=== PATIENT | female | born 1985 | race Caucasian/White ===

== ENCOUNTER 2022-11-19 10:21 | Emergency (ER) | payer OTHER, SELFPAY ==
[2022-11-19 10:39] VITALS: BP 140/79; PULSE 87; RESP 17; TEMP 36.6; O2SAT 100
--- NOTE | 2022-11-19 10:39 | ECG_ITS ---
Measurements Intervals [place] Rate: 83 P: 73 AL: 138 QRS: 70 QRSD: 73 T: 61 QT: 338 QTc: 398 Interpretive Statements SINUS RHYTHM POOR R-WAVE PROGRESSION BORDERLINE ECG NO PREVIOUS ECG AVAILABLE FOR COMPARISON Electronically Signed On 11-19-2022 13:34:04 CDT by Jude Vivas M.D.
[2022-11-19 10:46] VITALS: PULSE 87
[2022-11-19 10:50] LABS: Basophils Absolute Auto 0.1 K/mm3 (0.0-0.1); Eosinophils Absolute Auto 0.2 K/mm3 (0-0.3); Eosinophils Percent Auto 2.4 % (0-4.4); Hematocrit 36.5 % (37.0-47.0); Hemoglobin 11.5 g/dL (12.0-15.0); Immature Granulocyte Absolute 0.01 K/mm3 (0.00-0.031); Immature Granulocyte Percent A 0.1 % (0-0.5); Lymphocytes Absolute Auto 2.11 K/mm3 (0.9-3.2); Lymphocytes Percent Auto 29.4 % (18.3-44.2); Mean Corpuscular HGB Conc 31.5 g/dl (32-36); Mean Corpuscular Hemoglobin 26.5 pg (26-34); Mean Corpuscular Volume 84.1 fl (80-100); Mean Platelet Volume 11.1 fl (7.4-10.4); Monocytes Absolute Auto 0.3 K/mm3 (0.1-0.6); Monocytes Percent Auto 4.6 % (2.6-8.5); Neutrophils Absolute Auto 4.5 K/mm3 (1.3-6.7); Neutrophils Percent Auto 62.5 % (45.5-73.1); Platelet Count Result 272 k/mm3 (150-375); Red Blood Count 4.34 M/mm3 (4.2-5.4); Red Cell Distribution Width 14.1 % (11.5-14.5); White Blood Count 7.2 K/mm3 (4.5-10.0)
[2022-11-19 10:51] VITALS: BP 121/70; PULSE 80
[2022-11-19 10:52] VITALS: BP 122/74; PULSE 81
[2022-11-19 10:54] VITALS: BP 126/95; PULSE 93
[2022-11-19 10:59] LABS: Alanine Aminotransferase 18 U/L (6-35); Alkaline Phosphatase 49 U/L (38-126); Anion Gap 10 mmol/L (8-16); Aspartate Amino Transferase 28 U/L (14-36); Bilirubin,Total 0.5 mg/dL (0.2-1.3); Blood Urea Nitrogen 9 mg/dL (7-17); Calcium 9.2 mg/dL (8.4-10.2); Carbon Dioxide 27 mmol/L (22-30); Chloride 101 mmol/L (98-107); Estimated CRCL calculation 111 ml/min; Estimated Glomerular Filt Rate > 60; Glucose 109 mg/dL (65-110); Potassium 3.9 mmol/L (3.4-5.0); Sodium 138 mmol/L (137-145)
--- NOTE | 2022-11-19 12:19 | ED.DIZZY ---
HPI - Dizziness General Chief Complaint: Syncope Stated Complaint: SYNCOPE AFTER WITNESSING SON'S INJURY Time Seen by Provider: 11/19/22 11:48 History of Present Illness HPI Narrative: 37-year-old female presented the emergency department for evaluation after having a syncopal episode. Patient was concerned that her child had injured the arm and they were planning on coming to the emergency department. Patient walked out of the room and had a syncopal episode and did strike her face. Patient had no postictal episode and states that she was back to her baseline within 10 seconds. was by her side. Patient did strike her head and does have a contusion but denies any other pain or injury. Review of Systems Review of Systems: All systems reviewed & are unremarkable except as noted in HPI and below Exam Narrative: APPEARANCE: Well appearing, no pain, no distress, well-nourished. HEAD: normocephalic, atraumatic. EYES: PERRLA/EOMI, conjunctivae clear. NOSE: Normal no drainage NECK: Supple. No adenopathy, no masses. RESPIRATORY: Airway patent, respirations nonlabored. Clear to auscultation bilaterally, no rales, rhonchi, wheezing. CARDIOVASCULAR: Regular rate and rhythm without murmurs rubs or gallops. ABDOMINAL: Soft, nontender, nondistended, normal bowel sounds MUSCULOSKELETAL: Moves all extremities. Strength/ROM intact, No edema, No calf tenderness. NEURO: Alert. Cranial nerves II through XII intact. No ataxia, no drift, normal forward and backward tandem gait, normal toe and heel stand SKIN: Warm, dry. Normal Color Course Course Emergency Course: 37-year-old female presented the ED for evaluation after a syncopal episode and head injury. Patient likely had a vasovagal episode in response to the emotional response to her child having an injury. Patient has a normal neuro exam and no clinical concern for intracranial, facial or neck injury. Patient had normal vital signs and normal orthostatics. Patient was afebrile with no leukocytosis. Patient's CMP is within normal limits. Patient's EKG showed no evidence of ischemia. Patient and family were updated the results of the work-up and suspected diagnosis. All questions and concerns were addressed and they are comfortable with the plan for discharge and close follow-up. They are also educated on reasons to return to the emergency department. Vital Signs Vital signs: Vital Signs Temperature 97.9 F 11/19/22 10:39 Pulse Rate 87 11/19/22 10:39 Respiratory Rate 17 11/19/22 10:39 Blood Pressure 140/79 11/19/22 10:39 Pulse Oximetry 100 11/19/22 10:39 Oxygen Delivery Room Air 11/19/22 10:39 Temperature 97.9 F 11/19/22 10:39 Pulse Rate 93 11/19/22 10:54 Respiratory Rate 17 11/19/22 10:39 Blood Pressure 126/95 H 11/19/22 10:54 Pulse Oximetry 100 11/19/22 10:39 Oxygen Delivery Room Air 11/19/22 10:39 MDM - Dizziness Differential Diagnosis Differential diagnosis: Likely benign paroxysmal positional vertigo and orthostatic hypotension Lab Data Attestation: I reviewed the patient's lab results. 11/19/22 10:42 11/19/22 10:42 Labs: Lab Results 11/19/22 Range/Units 10:42 WBC 7.2 (4.5-10.0) K/mm3 RBC 4.34 (4.2-5.4) M/mm3 Hgb 11.5 L (12.0-15.0) g/dL Hct 36.5 L (37.0-47.0) % MCV 84.1 (80-100) fl MCH 26.5 (26-34) pg MCHC 31.5 L (32-36) g/dl RDW 14.1 (11.5-14.5) % Plt Count 272 (150-375) k/mm3 MPV 11.1 H (7.4-10.4) fl Immature Gran % (Auto) 0.1 (0-0.5) % Neut % (Auto) 62.5 (45.5-73.1) % Lymph % (Auto) 29.4 (18.3-44.2) % Hand % (Auto) 4.6 (2.6-8.5) % Eos % (Auto) 2.4 (0-4.4) % Baso % (Auto) 1.0 (0.2-1.2) % Lymph # (Auto) 2.11 (0.9-3.2) K/mm3 Hand # (Auto) 0.3 (0.1-0.6) K/mm3 Eos # (Auto) 0.2 (0-0.3) K/mm3 Baso # (Auto) 0.1 (0.0-0.1) K/mm3 Abs Immat Gran (auto) 0.01 (0.00-0.031) K/mm3 Absolute Neuts (auto) 4.5 (1.3-6.7) K/mm3 Absol
== END 2022-11-19 12:53 | disposition home or self-care (01) ==
PROVIDERS: Emergency Provider Emergency Medicine
DX: S00.83XA Contusion of other part of head, initial encounter (principal); R55 Syncope and collapse; R94.31 Abnormal electrocardiogram [ECG] [EKG]; W18.39XA Other fall on same level, initial encounter
CPT/HCPCS: 36415; 80053; 85025; 93005; 99284